=== PATIENT | female | born 1975 | race Caucasian/White ===

== ENCOUNTER 2020-06-24 06:52 | Inpatient (IN) | payer OTHER ==
[~2020-06-24] VITALS: Ht 162.6 cm; Wt 70.5 kg
--- NOTE | 2020-06-24 07:21 | NUR ---
THE PT IS A 45F WITH COMPLAINTS OF CHEST PRESSURE THAT RADIATES TO BOTH SHOULDERS THAT STARTED THIS MORNING AT 0500. SHE FELT NAUSEUS AND HOT AND VOMITIED WHEN THIS FIRST STARTED. AT BEDSIDE. PROVIDER AT BEDSIDE FOR EVAL AND POC. CARDIAC, SP02, AND BP MONITORS IN PLACE. CALL LIGHT WITHIN REACH.
[2020-06-24] MEDS ORDERED: ASPIRIN 81 MG TABLET CHEW ONE (07:25)
[2020-06-24] MEDS ORDERED: SODIUM CHLORIDE FLUSH 10ML SYR IVF ONE (07:30)
[2020-06-24] MEDS ORDERED: ASPIRIN 81 MG TABLET CHEW PO ONE (07:30)
[2020-06-24 07:33] LABS: BASOPHILS % (AUTO) 1 % (0-1); EOSINOPHILS % (AUTO) 2 % (1-7); LYMPHOCYTES % (AUTO) 15 % (22-44); MEAN CORPUSCULAR HEMOGLOBIN 29.5 pg (27.0-34.8); MEAN CORPUSCULAR HGB CONC 33.8 g/dL (32.4-35.8); MEAN PLATELET VOLUME 7.8 fL (7.4-10.4); MONOCYTES % (AUTO) 5 % (2-9); NEUTROPHILS % (AUTO) 78 % (42-75); PLATELET COUNT 197 x10^3/uL (130-400); RED BLOOD COUNT 4.39 x10^6/uL (3.82-5.3); RED CELL DISTRIBUTION WIDTH 12.8 % (9.6-15.2)
[2020-06-24] MEDS ORDERED: LORazepam 0.5MG TABLET ONE (07:40)
[2020-06-24 07:42] LABS: ALBUMIN 3.7 g/dL (3.4-5.0); ANION GAP 6 mmol/L (5-15); CALCIUM 8.1 mg/dL (8.5-10.1); CHLORIDE 111 mmol/L (98-107)
[2020-06-24] MEDS ORDERED: LORazepam 1MG TABLET ONE (07:43)
[2020-06-24 07:48] LABS: ALANINE AMINOTRANSFERASE 24 U/L (12-78); ALKALINE PHOSPHATASE 43 U/L (45-117); BILIRUBIN,TOTAL 0.8 mg/dL (0.2-1.0); CREATININE 0.86 mg/dL (0.55-1.02); TOTAL PROTEIN 6.3 g/dL (6.4-8.2)
[2020-06-24 07:51] LABS: MD SCAN
[2020-06-24] MEDS ORDERED: LORazepam 1MG TABLET PO ONE (08:00)
--- NOTE | 2020-06-24 08:05 | NUR ---
PT HAS AN ELEVATED TROP, PROVIDER AT BEDSIDE FOR POC. SPOUSE AT BEDSIDE AND ALL MONITORS IN PLACE.
[2020-06-24] MEDS ORDERED: HEPARIN 25,000 UNITS/250ML PMX 250 ML ONE (08:07)
[2020-06-24] MEDS ORDERED: HEPARIN 5,000 UNITS/ML, 1ML ONE (08:07)
--- NOTE | 2020-06-24 08:23 | NUR ---
TAX INVESTIGATOR AT BEDSIDE FOR EVAL AND POC. HEPARIN DRIP VERIFIED PER PHARMACY AND STARTED. SPOUSE AT BEDSIDE. ALL MONITORS IN PLACE AND CALL LIGHT WITHIN REACH.
[2020-06-24] MEDS ORDERED: HEPARIN 25,000 UNITS/250ML PMX 250 ML IV PRN (08:30)
[2020-06-24] MEDS ORDERED: HEPARIN 5,000 UNITS/ML, 1ML IV PRN (08:30)
[2020-06-24] MEDS ORDERED: HEPARIN 5,000 UNITS/ML, 1ML IV ONE (08:30)
[2020-06-24] MEDS ORDERED: MORPHINE SULFATE 4 MG/ML, 1ML IVPush PRN (09:00)
[2020-06-24] MEDS ORDERED: ONDANSETRON 2MG/ML, 2ML IVPush PRN (09:00)
[2020-06-24] MEDS ORDERED: ONDANSETRON ODT 4 MG PO PRN (09:00)
[2020-06-24] MEDS ORDERED: ACETAMINOPHEN 325 MG TABLET PO PRN (09:00)
--- NOTE | 2020-06-24 09:02 | NUR ---
REPORT TO CRISTIANO COTTON, PT WILL GO TO [phone] AFTER CATH
[2020-06-24] MEDS ORDERED: MIDAZOLAM 1 MG/ML, 5ML ONE (09:14)
[2020-06-24] MEDS ORDERED: VERAPAMIL 2.5 MG/ML, 2ML ONE (09:14)
[2020-06-24] MEDS ORDERED: TICAGRELOR 90 MG TABLET ONE (09:14)
[2020-06-24] MEDS ORDERED: FENTANYL PF 100 MCG/2ML ONE (09:14)
[2020-06-24] MEDS ORDERED: HEPARIN 1,000 UNITS/ML, 10ML ONE (09:15)
[2020-06-24] MEDS ORDERED: LIDOCAINE-MPF 1%, 5ML ONE (09:15)
[2020-06-24] MEDS ORDERED: BIVALIRUDIN 250 MG ONE (09:15)
[2020-06-24] MEDS ORDERED: NITROGLYCERIN 5 MG/ML, 10ML ONE (09:16)
[2020-06-24] MEDS: SODIUM CHLORIDE 0.9% 1,000 ML IV SCH (10:57)
[2020-06-24 13:20] VITALS: BP 109/81
[2020-06-24] MEDS: CLOPIDOGREL 75 MG TABLET PO SCH (15:38)
[2020-06-24 15:40] VITALS: BP 109/81
[2020-06-24 19:19] VITALS: BP 91/58
[2020-06-24] MEDS ORDERED: ATORVASTATIN 80 MG TABLET PO SCH (21:00)
[2020-06-25 01:13] VITALS: BP 97/61
[2020-06-25] MEDS: SODIUM CHLORIDE 0.9% 1,000 ML IV SCH (01:16)
[2020-06-25 04:58] LABS: BASOPHILS % (AUTO) 0 % (0-1); EOSINOPHILS % (AUTO) 4 % (1-7); LYMPHOCYTES % (AUTO) 32 % (22-44); MD NO; MEAN CORPUSCULAR HEMOGLOBIN 29.7 pg (27.0-34.8); MEAN CORPUSCULAR HGB CONC 34.1 g/dL (32.4-35.8); MEAN PLATELET VOLUME 8.1 fL (7.4-10.4); MONOCYTES % (AUTO) 8 % (2-9); NEUTROPHILS % (AUTO) 56 % (42-75); PLATELET COUNT 176 x10^3/uL (130-400); RED BLOOD COUNT 3.98 x10^6/uL (3.82-5.3); RED CELL DISTRIBUTION WIDTH 12.7 % (9.6-15.2)
[2020-06-25 05:12] LABS: CHLORIDE 112 mmol/L (98-107)
[2020-06-25 05:18] LABS: ALANINE AMINOTRANSFERASE 22 U/L (12-78); ALBUMIN 3.2 g/dL (3.4-5.0); ALKALINE PHOSPHATASE 35 U/L (45-117); ANION GAP 4 mmol/L (5-15); BILIRUBIN,TOTAL 0.5 mg/dL (0.2-1.0); CALCIUM 8.2 mg/dL (8.5-10.1); CREATININE 0.76 mg/dL (0.55-1.02); TOTAL PROTEIN 5.5 g/dL (6.4-8.2)
[2020-06-25] MEDS ORDERED: ASPIRIN 325 MG TABLET PO SCH (06:00)
[2020-06-25 07:13] VITALS: BP 124/7
[2020-06-25] MEDS: CLOPIDOGREL 75 MG TABLET PO SCH (08:22)
[2020-06-25] MEDS ORDERED: SODIUM CHLORIDE 0.9% 1,000 ML IV SCH (09:00)
[2020-06-25] MEDS ORDERED: ATOR-2 PO (11:07)
[2020-06-25] MEDS ORDERED: NITR0.4T41 SL (11:07)
[2020-06-25] MEDS ORDERED: ASPI81TA45 PO (11:07)
[2020-06-25] MEDS ORDERED: CLOP75TA PO (11:07)
[2020-06-26] MEDS ORDERED: ASPIRIN 81 MG TABLET EC PO SCH (06:00)
== END 2020-06-25 12:39 | disposition home or self-care (01) | DRG 282 ==
LOC: ED 07:56 → EDIP 08:19 → 5SO 10:08 → DCLOUNGE 06-25 12:26
PROVIDERS: ADMIT Internal Medicine; ATTEND Internal Medicine
PROC: 4A023N7 Measurement of Cardiac Sampling and Pressure, Left Heart, Percutaneous Approach (ICD-10-PCS; principal; 2020-06-24)
PROC: B2111ZZ Fluoroscopy of Multiple Coronary Arteries using Low Osmolar Contrast (ICD-10-PCS; 2020-06-24)
PROC: B2151ZZ Fluoroscopy of Left Heart using Low Osmolar Contrast (ICD-10-PCS; 2020-06-24)
DX: I21.4 Non-ST elevation (NSTEMI) myocardial infarction (principal); I77.0 Arteriovenous fistula, acquired; Z90.710 Acquired absence of both cervix and uterus; Z82.49 Family history of ischemic heart disease and other diseases of the circulatory system; Z90.711 Acquired absence of uterus with remaining cervical stump; R74.01 Elevation of levels of liver transaminase levels; Z20.822 Contact with and (suspected) exposure to COVID-19
CPT/HCPCS: 36415; 71045; 76937; 80053; 84484; 85025; 85379; 85520; 87635; 93005; 93306; 93356; 93458; 99156; 99157; C1769; C1894; G0378; J0583; J1644; J2250; J3010; J7030; Q9967

== ENCOUNTER → 2020-08-07 | Outpatient (CLI) | payer OTHER ==
[~2020-08-07] MED LIST: ASPI81TA45 PO; ATOR-2 PO; CLOP75TA PO; NITR0.4T41 SL
== END | disposition home or self-care (01) ==
LOC: CVU 08:59
PROVIDERS: ATTEND Internal Medicine Cardiovascular Disease
DX: I08.1 Rheumatic disorders of both mitral and tricuspid valves (principal)
CPT/HCPCS: 93306; 93356

== ENCOUNTER 2020-12-11 11:45 | Emergency (ER) | payer OTHER ==
[~2020-12-11] VITALS: Ht 162.6 cm; Wt 73.0 kg
[2020-12-11 12:06] VITALS: BP 166/112
--- NOTE | 2020-12-11 12:47 | NUR ---
multimedia engineer: Pt ambulatory to room from lobby at this time.
--- NOTE | 2020-12-11 13:17 | NUR ---
JANEE CHEEK, AT FOR PT HISTORY AND ASSESSMENT. PT HAS CALL LIGHT WITHIN REACH AND DENIES ANY NEEDS AT THIS TIME. AWAITING ORDERS FROM PROVIDER.
--- NOTE | 2020-12-11 14:06 | NUR ---
Patient/Caregiver given discharge instructions and they have confirmed that they understand the instructions. Patient ambulatory with steady gait. NAD, all questions answered appropriately, denies additional needs at this time.
== END 2020-12-11 14:07 | disposition home or self-care (01) ==
LOC: ED 12:00
DX: U07.1 COVID-19 (principal); J06.9 Acute upper respiratory infection, unspecified; B34.9 Viral infection, unspecified; R07.89 Other chest pain; I25.2 Old myocardial infarction
CPT/HCPCS: 71045; 99283